=== PATIENT | female | born 1960 | race Caucasian/White ===

== ENCOUNTER 2016-09-25 09:01 | Day surgery (SDC) | payer BC ==
[2016-09-21 11:37] LABS: HEMATOCRIT 38.5 % (36.0-48.0); HEMOGLOBIN 13.2 g/dL (12.0-16.0)
[2016-09-21 11:45] LABS: A/G RATIO 1.2 (0.7-1.9); ALBUMIN 4.1 G/DL (3.5-5.0); ALKALINE PHOSPHATASE 128 U/L (45-117); CALCIUM, SERUM 9.4 MG/DL (8.5-10.4); CHLORIDE, SERUM 100 MMOL/L (96-112); CO2 (CARBON DIOXIDE) 29 MMOL/L (24-34); CREATININE 0.83 MG/DL (0.55-1.02); GFR AFRICAN AMERICAN 91 ML/MIN (>=60); GFR NON AFRICAN AMERICAN 78 ML/MIN (>=60); GLOBULIN 3.5 G/DL (2.5-4.1); POTASSIUM, SERUM 3.4 MMOL/L (3.5-5.3); SGOT(AST) 41 U/L (5-40); SGPT(ALT) 112 U/L (5-65); SODIUM, SERUM 140 MMOL/L (135-148); TOTAL BILIRUBIN 0.8 MG/DL (0-1.2); TOTAL PROTEIN 7.6 G/DL (6.0-8.5)
[2016-09-21 11:46] LABS: BUN (BLOOD UREA NITROGEN) 19 MG/DL (6-23); GLUCOSE, SERUM 97 MG/DL (60-99)
--- NOTE | ~2016-09-25 | OP ---
Record Of Operation [facility] [address] [place]. [address] NAME: CORNELIA WOODY : 58 STATUS : [facility]#: [id number] AGE: 56 ADM/REG DATE : 09/25/16 MR#: [id number] REPORT SERV DATE: 09/28/16 DICTATED BY: YOVANI REMY JR. DATE: 09/28/16 REPORT STATUS : Draft TRANSCRIBED BY: DIVYA DATE: 09/28/16 DATE OF PROCEDURE: 09/25/2016 REASON FOR SURGERY: This 56-year-old patient presents for surgery for carcinoma of the left breast. This is a low grade lesion, but small where some of the parameters have not been determined. Clinically is a small node negative malignancy. PREOPERATIVE DIAGNOSIS: Carcinoma, left breast. POSTOPERATIVE DIAGNOSIS: Carcinoma, left breast. SURGEON: Yovani Remy M.D. SURGERY PERFORMED: [place] node localization followed by left breast segmentectomy and sentinel node resection. PROCEDURE IN DETAIL: The patient previously underwent ultrasound localization. She was injected in the nuclear medicine facility. She was taken to the operating room and under general anesthesia, she was prepped and draped in the supine position in usual sterile fashion. A curvilinear incision was made over the previously defined area. A three-dimensional excision was removed measuring 3.5 cm across keeping it now indurated specimens center most within the field. An additional disk of tissue from the 6 to 9 o'clock position was taken, as this was the closest margin. It encompassed full third of the cavity. It was oriented for pathology. The wound was irrigated. Hemostasis was obtained. The wound was closed with two layers of Monocryl. Attention was turned to the left axilla. With help with the Gamma probe, a small curvilinear incision was made and vertical dissection was carried down to two active lymph nodes. They were removed with counts, recorded in the surgical log book. The wound was irrigated and hemostasis was obtained. The wound was closed with two layers of Monocryl. The patient tolerated the procedure well without complications. ESTIMATED BLOOD LOSS: 10 mL. SPONGE COUNT: Correct. MR/DIVYA Yovani Remy Jr., M.D. Record Of Operation [place] [address] [facility]. [address] NAME: CORNELIA WOODY : 58 STATUS : [facility] PAT#: [id number] AGE: 56 ADM/REG DATE : 09/25/16 MR#: [id number] REPORT SERV DATE: 09/28/16 DICTATED BY: YOVANI REMY JR. DATE: 09/28/16 REPORT STATUS : Draft TRANSCRIBED BY: MODL DATE: 09/28/16 / [id number] CC: Deepa Bergman Jr., M.D. [facility]
[~2016-09-25 09:01] MED LIST: COZAAR100 MG PO
== END 2016-09-25 19:58 | disposition home or self-care (01) ==
LOC: SDC 09:01
PROVIDERS: Surgery Surgical Oncology
PROC: 07B60ZX Excision of Left Axillary Lymphatic, Open Approach, Diagnostic (ICD-10-PCS; 2016-09-25)
PROC: 0HBU0ZZ Excision of Left Breast, Open Approach (ICD-10-PCS; principal; 2016-09-25 12:45)
DX: C50.912 Malignant neoplasm of unspecified site of left female breast (principal); I10 Essential (primary) hypertension; G43.909 Migraine, unspecified, not intractable, without status migrainosus; Z91.048 Other nonmedicinal substance allergy status; Z79.899 Other long term (current) drug therapy; K44.9 Diaphragmatic hernia without obstruction or gangrene; Z98.890 Other specified postprocedural states
CPT/HCPCS: 71020; 78195; 80053; 85014; 85018; 88305; 88307; 88342; 88360; 93005; A9270-GY; A9541; J0690; J2250; J2270; J2405; J2550; J3010